=== PATIENT | male | born 1975 | race African-American/Black ===

== ENCOUNTER 2016-08-15 10:21 | Emergency (ER) | payer OTHER ==
--- NOTE | ~2016-08-15 | CR181 ---
[facility] A Service of [facility] RADIOLOGY TEXT RESULTS PATIENT: REILLY UP LOCATION: [facility] : 79 UNIT #: [id number] AGE: [address]: Stella Isaac SEX: M ORDER DR: [id number] [facility] [address] [place], [place] [address] [id number] E MR#: [id number] Acc #: [id number] NAME: REILLY UP : 1975 SEX: M STUDY DATE/TIME: 08/15/2016 11:32 UNIT: [facility] ROOM: STUDY DESCRIPTION: CR Lumbar Spine 2 or 3 Views Attending Physician: Stella Isaac Pa-C Ordering Physician: [facility] MEDICAL IMAGING REPORT This report is preliminary unless electronic signature is present EXAM Lumbar spine series 08/15/2016 HISTORY Trauma. Low back pain radiating down back of both legs. Began today last night. Pain after standing 10 hours and lifting a 4-5 gallon bucket of water. FINDINGS AP and lateral views lumbar spine show 5 lumbar-type vertebral segments. Alignment normal. Vertebral body heights normal. Mild narrowing L4-L5 intervertebral disc space and moderate narrowing L5-S1 intervertebral disc space. Facet joint relationships normal. The visualized lower thoracic spine and bony pelvis unremarkable. Visualized bowel gas pattern normal. Dictated by... Jai Moses M.D. THIS IS AN ELECTRONICALLY VERIFIED REPORT Jai Moses M.D. at 08/16/2016 12:11 PM ALEXANDR/radha TD: 08/15/2016 16:56 JOB #: [id number] MEDICAL IMAGING REPORT Page 1 of 1 COPY
== END 2016-08-15 12:20 | disposition home or self-care (01) ==
LOC: CED 10:21 → CFTX 10:21
DX: S39.012A Strain of muscle, fascia and tendon of lower back, initial encounter (principal); J45.909 Unspecified asthma, uncomplicated; F17.200 Nicotine dependence, unspecified, uncomplicated; X58.XXXA Exposure to other specified factors, initial encounter; Y92.9 Unspecified place or not applicable
CPT/HCPCS: 72100; 99283

== ENCOUNTER 2016-08-16 19:49 | Emergency (ER) | payer OTHER | END 2016-08-16 20:40 | disposition home or self-care (01) | LOC: CED 19:49 → CFTX 19:49 | DX: S39.012A Strain of muscle, fascia and tendon of lower back, initial encounter (principal); M54.42 Lumbago with sciatica, left side; X50.0XXA Overexertion from strenuous movement or load, initial encounter; Y92.9 Unspecified place or not applicable | CPT/HCPCS: 96372; 99283; J1885 ==

== ENCOUNTER 2016-09-16 16:13 | Emergency (ER) | payer OTHER ==
[~2016-09-16] VITALS: Ht 180.3 cm; Wt 111.1 kg
--- NOTE | ~2016-09-16 | CT98 ---
[facility] A Service of [facility] RADIOLOGY TEXT RESULTS PATIENT: REILLY UP LOCATION: [facility] : 79 UNIT #: [id number] AGE: [address]: Caridad Virgen APRN SEX: M ORDER DR: [id number] [facility] [address] [place], [place] [address] [id number] E MR#: [id number] Acc #: [id number] NAME: REILLY UP : 1975 SEX: M STUDY DATE/TIME: 09/16/2016 17:30 UNIT: [facility] ROOM: STUDY DESCRIPTION: CT Lumbar Spine Wo Cont Attending Physician: Caridad Virgen A.P.R.N. Ordering Physician: Ed Champ Puri M.D. Primary Care Physician: No Primary Care Physician MEDICAL IMAGING REPORT This report is preliminary unless electronic signature is present EXAM CT of the lumbar spine, 09/16/2016. HISTORY Left leg, back pain starts at buttock, down to foot for one month. TECHNIQUE CT lumbar spine performed. Bone and soft tissue windows reviewed. Sagittal/coronal reconstructions performed. This CT exam was performed with one or more of the following radiation dose reduction techniques: automatic exposure control, adjustment of mA and/or kV according to patient size, and iterative reconstruction. COMPARISON STUDIES No comparisons. FINDINGS The visualized portions of liver, spleen, pancreas, adrenal glands, kidneys, alimentary canal, unremarkable. Aorta normal in caliber in visualized extent. No adenopathy. Five lumbar-type vertebral segments. Alignment normal. Vertebral body heights and intervertebral disc space heights are normal. Facet joint relationships normal. No fracture. Baseline spinal canal narrowing due to short pedicles. T11-T12: Baseline spinal canal narrowing. No indication of disc bulge or herniation. Mild left foraminal narrowing. T11-T12: Unremarkable. T12-L1, L1-L2: No significant disc bulge or herniation. Spinal canal shows minimal baseline narrowing due to short pedicles. The neural foramina are unremarkable. [facility] A Service of [facility] RADIOLOGY TEXT RESULTS PATIENT: REILLY UP [id number] [birth year] UNIT #: [id number] AGE: [address]: Caridad Virgen APRN SEX: M ORDER DR: L2-L3: Posterior concentric disc bulge superimposed on baseline spinal canal narrowing. Mild central spinal canal narrowing. Straightening of the anterior cord contour. Neural foramina show mild bilateral narrowing. There is no clear indication of exiting nerve impingement. L3-L4: Posterior concentric disc bulge. Superimposed on baseline spinal canal narrowing. Mild central spinal canal narrowing. The neural foramina show mild narrowing. No clear indication of exiting nerve impingement. L4-L5: Posterior disc bulge/protrusion more pronounced centrally in the left paracentral region. [id number] central spinal canal narrowing on the order of about 1 cm in AP dimension. There is mass effect on the bilateral lateral recesses, left greater than right. Mass effect on descending L5 nerves is a consideration particularly on the left. The disc bulge extends into the inferior aspect of the left neural foramen. There is moderate left foraminal narrowing. Exiting left L4 nerve irritation or krystina impingement is a consideration. L5-S1: Posterior central and left paracentral disc bulge/protrusion. There is no spinal stenosis. There is a suggestion of mass effect on the descending S1 nerve root sleeve. Correlate with left S1 dermatomal symptoms. The disc bulge abuts but does not appear to cause mass effect on the descending right S1 nerve root sleeve. Mild facet hypertrophic change. Mild narrowing of the neural foramina without clear indication of intraforaminal exiting L5 nerve impingement. IMPRESSION 1. Please see complete dictation above for full details. There is no evidence of fracture or traumatic malalignment. Note is made of baseline spinal canal narrowing due to short pedicles exacerbated at several levels by posterior disc bulges/protrusions. See [id number] descriptions in body of report above. 2. Most pronounced findings are at the L4-L5 and L5-S1 levels. Posterior disc bulge/protrusion L4-L5 slightly more pronounced in the left paracentral aspect. Mild to moderate central spinal canal narrowing. Mass effect on thecal sac. Mass effect on bilateral lateral recesses, left greater than right. Mass effect on descending L5 nerves is a consideration bilaterally particularly on the left. Correlate with dermatomal symptoms. There is at least moderate narrowing of the left L4-L5 neural foramen due to the disc bulge and associated relatively mild facet and ligament flavum hypertrophic changes. Irritation or krystina impingement of the exiting left L4 nerve is a consideration. Correlate with dermatomal symptoms. 3. Posterior central and left paracentral disc bulge/protrusion L5-S1. I believe there is mass effect on the descending left S1 nerve root sleeve. Correlate with dermatomal symptoms. There is mild narrowing of the bilateral L5-S1 neural foramina, but there is no clear indication of intraforaminal exiting L5 nerve impingement. STS. [facility] A Service of [facility] RADIOLOGY TEXT RESULTS PATIENT: REILLY UP LOCATION: [facility] : 79 UNIT #: [id number] AGE: [address]: Caridad Virgen APRN SEX: M ORDER DR: 4. If the patient is a candidate, spinal canal and neural foraminal contents could best be further evaluated with MRI. Dictated by... Jai Moses M.D. THIS IS AN ELECTRONICALLY VERIFIED REPORT Jai Mosse M.D. at 09/18/2016 2:44 PM Elizabeth TD: 09/17/2016 12:43 JOB #: [id number] MEDICAL IMAGING REPORT Page 1 of 1 COPY
== END 2016-09-16 18:50 | disposition home or self-care (01) ==
LOC: CFTX 16:13 → CED 16:13 → CFTX 18:03
DX: M51.16 Intervertebral disc disorders with radiculopathy, lumbar region (principal); J45.909 Unspecified asthma, uncomplicated; F17.210 Nicotine dependence, cigarettes, uncomplicated
CPT/HCPCS: 72131; 96372; 99283; J1885